=== PATIENT | female | born 1985 | race Two or more races ===

== ENCOUNTER 2024-08-27 06:15 | Emergency (ER) | payer MEDICAID, SELFPAY ==
[2024-08-27 06:17] VITALS: BMI 27.9
[2024-08-27 06:25] VITALS: BP 109/69; PULSE 77; RESP 18; TEMP 37.1; O2SAT 98
--- NOTE | 2024-08-27 06:28 | EDNOTE_ITS ---
<Statement entered by Sabine Mars MD - 08/27/24 06:44> As co-signing physician, I was present and available for consult prn. I concur with the plan and care as documented by the midlevel provider. ED Skin Abcess FB-RME/HPI General Chief complaint: Skin/Abscess/Foreign Body Stated complaint: LEFT BREAST PAIN X4 DAYS, BLEEDING Time Seen by Provider: 08/27/24 06:21 Arrival date/time: 08/27/24 06:15 39-year-old female presents emergency department complaints of left breast pain and discharge from the left breast patient is currently breast-feeding Limitations: no limitations Related Data Home Medications ?Medication ?Instructions ?Recorded ?Confirmed vitamin with calcium 1 tab PO QDAY 04/09/18 1 no.72-iron 27 mg-folic acid 1 mg tablet ( Vitamins Plus Low Iron) Previous Rx's ?Medication ?Instructions ?Recorded amoxicillin 875 mg-potassium 1 tab PO BID 10 days #20 tabs 08/27/24 clavulanate 125 mg tablet ibuprofen 600 mg tablet 600 mg PO Q6H #30 tabs 08/27 Allergies Allergy/AdvReac Type Severity Reaction Status Date / Time No Known Allergies Allergy Verified 04/18/24 06:53 Review of Systems Review of Systems Systems Reviewed: All systems reviewed, normal except as documented Constitutional Constitutional: Reports system reviewed and no additional complaints, except as documented, Denies fever(s) and Denies headache(s) Eyes Eyes: Reports system reviewed and no additional complaints, except as documented and Denies blurry vision ENT Ears, Nose, Mouth, and Throat: Reports system reviewed and no additional complaints, except as documented, Denies headache(s), Denies nasal congestion and Denies nasal discharge Cardiovascular Cardiovascular: Reports system reviewed and no additional complaints, except as documented, Denies chest pain and Denies dyspnea Respiratory Respiratory: Reports system reviewed and no additional complaints, except as documented, Denies chest congestion, Denies cough and Denies dyspnea Gastrointestinal Gastrointestinal: Reports system reviewed and no additional complaints, except as documented and Denies abdominal pain Genitourinary Genitourinary: Reports nipple discharge Integumentary/Breasts Skin/Breast: Reports system reviewed and no additional complaints, except as documented, Denies rash, Reports breast pain and Reports nipple discharge Neurologic Neurologic: Reports system reviewed and no additional complaints, except as documented, Reports as per HPI and Denies headache(s) Past Medical History Past Medical History NEUROLOGIC: Positive Migraine; Negative Neurological Disorders CARDIAC: Positive Cardiac Disorders and Hypertension (with ); Negative Congestive Heart Failure RESPIRATORY: Negative Chronic Obstructive Pulmonary Disease (COPD) or Asthma GASTROINTESTINAL: Positive Gastrointestinal Disorders and Obesity GENITOURINARY: Negative Genitourinary Disorders or Renal Disease REPRODUCTIVE: Positive Previous Pregnancies MUSCULOSKELETAL: Negative Musculoskeletal Disorders ENDOCRINE: Positive Endocrine Disorders; Negative Diabetes Mellitus Type 1, Diabetes Mellitus Type 2, Hypoglycemia, Hyperthyroidism, Hypothyroidism, Parathyroid Disease, Pituitary Disease, Systemic Lupus Erythematosus, Syndrome of Inappropriate Antidiuretic Hormone (SIADH) or Graves' Disease HEMATOLOGIC: Negative Blood Disorders or Sickle Cell Disease PSYCHO/SOCIAL: Positive Depression (no meds) and Anxiety (no meds) OTHER HISTORY: Positive Chicken Pox; Negative Autoimmune Disease Family History FAMILY HISTORY: Positive Family Gastrointestinal Problems (grandmother- stomach issues.) and Family Surgery (grandmother-appectectomy); Negative Family Psychiatric Problems, Family Respiratory Disorders, Family Cardiac Disorders, Family Cancer or Family Anesthesia Reaction Surgical History SURGICAL: Negative Section Social History SMOKING STATUS: Never smoker SECOND HAND EXPOSURE: No ED Exam General Limitations: Present no limitations General appearance: Present alert and in no apparent distress Head Head exam: Present atraumatic Eye Eye exam: Present normal appearance, PERRL and EOMI ENT ENT exam: Present normal exam, normal oropharynx and mucous membranes moist Neck Neck exam: Present normal inspection, full ROM and trachea midline Chest Chest inspection: Present normal inspection, symmetric chest wall rise and tenderness (Left breast tenderness) Respiratory Respiratory exam: Present normal lung sounds bilaterally Cardiovascular Cardiovascular exam: Present regular rate, normal rhythm and normal heart sounds Abdominal Exam Abdominal exam: Present soft and normal bowel sounds Extremities Exam Extremities exam: Present normal inspection and full ROM Back Exam Back exam: Present normal inspection and full ROM Neurological Exam Neurological exam: Present alert, oriented X3 and CN II-XII intact Psychiatric Psychiatric exam: Present normal affect and normal mood Skin Skin exam: Present warm, dry, intact and normal color; Absent erythema Course Quality Measures none Orders Category Date Time Status Lidocaine 1% 20 ml [Xylocaine 1% 20 ML] Med 08/27/24 06:26 Discontinued 2.1 ml INFL X1 ONE cefTRIAXone [Rocephin] Med 08/27/24 06:26 Discontinued 1,000 mg IM X1 ONE Vital Signs Vital signs: Vital Signs Temperature 98.8 F 08/27/24 06:25 Pulse Rate 77 08/27/24 06:25 Respiratory Rate 18 08/27/24 06:25 Blood Pressure 109/69 08/27/24 06:25 Pulse Oximetry (%) 98 08/27/24 06:25 Oxygen Delivery Method Room Air 08/27/24 06:25 O2 saturation 98% room air within normal limits Skin / Abscess / Foreign Body MDM Narrative MDM Narrative:: 39-year-old female presents emergency department complaints of left breast pain and discharge from the left breast patient is currently breast-feeding With a female mail handler examined the patient's left breast patient currently has no discharge there is no redness swelling or warmth I believe the patient does have any stage of mastitis patient given Rocephin and discharged home with a course of antibiotics I did explain to the patient she should follow-up with her HIMS CLERK for further evaluation and for emergent concerns to return immediately patient states understanding is amenable to this plan Patient data External records reviewed:: [facility] previous records Clinical information provided by:: patient Social determinants that could affect healthcare access:: none Patient has the following chronic illnesses:: She history How is presenting disease/condition affected by chronic disease/condition?: uneffected by Evaluation data The following diagnostics were reviewed and interpreted by me:: other (specify) (N/A) Lab and/or radiology exams considered but not ordered:: Consider not ordered Interpretation Summary: N/A Medications / Prescriptions Medications or Prescriptions considered but not ordered:: Given Medication administrations:: Medication Administration History Discontinued Medications Ceftriaxone Sodium (Ceftriaxone Sod Inj 1,000 Mg Vial) 1,000 mg IM X1 ONE Stop: 08/27/24 06:27 Lidocaine HCl (Lidocaine Hcl 1% 20 Ml Vial) 2.1 ml INFL X1 ONE Stop: 08/27/24 06:27 Given Consultations Consultation(s) initiated? (list below): No Diagnosis Skin/Abscess Differential Diagnosis: abscess of skin or subcutaneous tissue and cellulitis Most likely diagnosis given after review of the tests above:: Left breast pain Admission Indicated Admission indicated?: not indicated Admission Request Was there a request for admission?: No Disposition Plan Disposition Plan: Discharge Discharge Attestation Discharge Attestation: The patient and all family members were given an opportunity to ask questions and understood the discharge instructions. Discharge instructions specifically effects, indications for sooner follow up or return to the emergency department, and the expected course of current diagnosis. Patient condition: Stable Discharge Plan Plan Patient Disposition: HOME (Self Care) Disposition Comment: stable Prescriptions/Referrals Prescriptions/Med Rec: New ibuprofen 600 mg tablet 600 mg PO Q6H Qty: 30 0RF amoxicillin-pot clavulanate 875-125 mg tablet 1 tab PO BID 10 Days Qty: 20 0RF No Action Vitamin Plus Low Iron 27 mg iron- 1 mg Tablet 1 tab PO QDAY Problem List Clinical Impression: Acute mastitis of left breast Patient/Caregiver Discharge Instructions Education Materials: ED Mastitis Additional Instructions: Please follow up with your primary care doctor in the next 24-48hrs for any worsening symptoms return here immediately Print Language: Kazakh Stand Alone Forms: Sona Award Info., Patient Portal Info Letter PA/HEALTH SAFETY AND ENVIRONMENT MANAGER Supervising Physician PA/HEALTH SAFETY AND ENVIRONMENT MANAGER Supervising Physician: Dr. Mars
[2024-08-27] MEDS: cefTRIAXone SOD INJ 1,000 MG VIAL 1000 MG IM (07:18)
[2024-08-27] MEDS: LIDOCAINE HCL 1% 20 ML VIAL 2.1 ML INFL (07:18)
== END 2024-08-27 07:35 | disposition home or self-care (01) ==
LOC: SERX 06:55
PROVIDERS: Emergency Provider Emergency Medicine; PCP Emergency Medicine
DX: N61.0 Mastitis without abscess (principal)
CPT/HCPCS: 96372; 99283; J0696; J3490

== ENCOUNTER 2024-12-14 17:43 | Emergency (ER) | payer MEDICAID, SELFPAY ==
[2024-12-14 17:55] VITALS: BP 146/85; PULSE 79; RESP 16; TEMP 36.7; O2SAT 97; BMI 29.1
--- NOTE | 2024-12-14 18:32 | XR_ITS ---
Examination: PA chest single view TECHNIQUE: Upright PA chest single view Date and time: 2024 1855 hours INDICATIONS: Chest pain and weakness shortness of breath beginning 5 days ago. FINDINGS: Reduced inspiratory effort No pneumonia or pulmonary edema The osseous structures are intact IMPRESSION: No pneumonia or pulmonary edema
--- NOTE | 2024-12-14 18:32 | EKG_ITS ---
[facility] Test Date: 2024-12-14 Pat Name: JOY BUNN Department: Room: - Gender: Female Aba Therapist: : 1985 Requested By: Dewayne Reyes Order Number: [id number] Reading MD: Dewayne Reyes Measurements Intervals Lind Rate: 71 P: 35 CA: 173 QRS: 21 QRSD: 87 T: 13 QT: 391 QTc: 425 Interpretive Statements SINUS RHYTHM WITH SINUS ARRHYTHMIA Compared to ECG 04/14/2024 00:13:20 No significant changes /store/S0/[id number].pdf
--- NOTE | 2024-12-14 19:06 | PD.EDANX ---
ED Anxiety RME/HPI General Chief Complaint: Flu Like Symptoms Stated Complaint: chest pain, weakness, and shortness of breath 5day Time Seen by Provider: 12/14/24 18:28 Arrival date/time: 12/14/24 17:43 39F with history of psych (not on meds) presents to ED with 5 days of intermittent CP, SOB, and non-bloody diarrhea. Patient denies URI symptoms, N/V, diarrhea, and fevers/chills. Patient had a recent in the family and has been under a lot of stress. Patient denies SI/HI. She just wanted to be checked out because she has a baby at home and the rest of her family is leaving to another location for a while. Limitations: no limitations Related Data Home Medications ?Medication ?Instructions ?Recorded ?Confirmed vitamin with calcium 1 tab PO QDAY 04/09/18 04/18/24 no.72-iron 27 mg-folic acid 1 mg tablet ( Vitamins Plus Low Iron) Previous Rx's ?Medication ?Instructions ?Recorded ibuprofen 600 mg tablet 600 mg PO Q6H #30 tabs 08/27/24 Allergies Allergy/AdvReac Type Severity Reaction Status Date / Time No Known Allergies Allergy Verified 12/14/24 17:46 Review of Systems Review of Systems Systems Reviewed: All systems reviewed, normal except as documented Constitutional Constitutional: Reports system reviewed and no additional complaints, except as documented, Denies fever(s) and Denies headache(s) ENT Ears, Nose, Mouth, and Throat: Denies disequilibrium and Denies headache(s) Cardiovascular Cardiovascular: Reports system reviewed and no additional complaints, except as documented, Reports as per HPI, Reports chest pain and Reports dyspnea Respiratory Respiratory: Reports system reviewed and no additional complaints, except as documented, Denies cough and Reports dyspnea Gastrointestinal Gastrointestinal: Reports system reviewed and no additional complaints, except as documented, Reports as per HPI, Denies abdominal pain, Reports diarrhea, Denies nausea and Denies vomiting Neurologic Neurologic: Reports system reviewed and no additional complaints, except as documented, Denies confusion, Denies disequilibrium and Denies headache(s) Psychiatric Psychiatric: Denies confusion Past Medical History Past Medical History NEUROLOGIC: Positive Migraine; Negative Neurological Disorders CARDIAC: Positive Cardiac Disorders and Hypertension (with ); Negative Congestive Heart Failure RESPIRATORY: Negative Chronic Obstructive Pulmonary Disease (COPD) or Asthma GASTROINTESTINAL: Positive Gastrointestinal Disorders and Obesity GENITOURINARY: Negative Genitourinary Disorders or Renal Disease REPRODUCTIVE: Positive Previous Pregnancies MUSCULOSKELETAL: Negative Musculoskeletal Disorders ENDOCRINE: Positive Endocrine Disorders; Negative Diabetes Mellitus Type 1, Diabetes Mellitus Type 2, Hypoglycemia, Hyperthyroidism, Hypothyroidism, Parathyroid Disease, Pituitary Disease, Systemic Lupus Erythematosus, Syndrome of Inappropriate Antidiuretic Hormone (SIADH) or Graves' Disease HEMATOLOGIC: Negative Blood Disorders or Sickle Cell Disease PSYCHO/SOCIAL: Positive Depression (no meds) and Anxiety (no meds) OTHER HISTORY: Positive Chicken Pox; Negative Autoimmune Disease Family History FAMILY HISTORY: Positive Family Gastrointestinal Problems (grandmother- stomach issues.) and Family Surgery (grandmother-appectectomy); Negative Family Psychiatric Problems, Family Respiratory Disorders, Family Cardiac Disorders, Family Cancer or Family Anesthesia Reaction Surgical History SURGICAL: Negative Section Social History SMOKING STATUS: Never smoker SECOND HAND EXPOSURE: No ED Exam General Limitations: Present no limitations General appearance: Present alert and in no apparent distress Head Head exam: Present atraumatic Eye Eye exam: Present normal appearance, PERRL and EOMI ENT ENT exam: Present normal exam, normal oropharynx and mucous membranes moist Neck Neck exam: Present normal inspection, full ROM and trachea midline Chest Chest inspection: Present normal inspection and symmetric chest wall rise Respiratory Respiratory exam: Present normal lung sounds bilaterally Cardiovascular Cardiovascular exam: Present regular rate, normal rhythm and normal heart sounds Abdominal Exam Abdominal exam: Present soft and normal bowel sounds Extremities Exam Extremities exam: Present normal inspection and full ROM Back Exam Back exam: Present normal inspection and full ROM Neurological Exam Neurological exam: Present alert, oriented X3 and CN II-XII intact Psychiatric Psychiatric exam: Present normal affect and normal mood Skin Skin exam: Present warm, dry, intact and normal color Course Quality Measures none Orders Category Date Time Status EKG (ED ONLY) *Do not use* NOW Care 12/14/24 18:32 Completed EKG (ED Only) Stat Exams 12/14/24 18:32 Draft XR chest 1V portable Stat Exams 12/14/24 18:32 Taken B-Type Natriuretic Peptide Stat Lab 12/14/24 18:49 Received CBC Stat Lab 12/14/24 18:49 Received Comprehensive Metabolic Panel Stat Lab 12/14/24 18:49 Received Lipase Stat Lab 12/14/24 18:49 Received Troponin I Stat Lab 12/14/24 18:49 Received Vital Signs Vital signs: Vital Signs Temperature 98.1 F 12/14/24 17:55 Pulse Rate 79 12/14/24 17:55 Respiratory Rate 16 12/14/24 17:55 Blood Pressure 146/85 H 12/14/24 17:55 Pulse Oximetry (%) 97 12/14/24 17:55 Oxygen Delivery Method Room Air 12/14/24 17:55 Anxiety MDM Narrative MDM Narrative: 39F with history of psych (not on meds) presents to ED with 5 days of intermittent CP, SOB, and non-bloody diarrhea. Patient denies URI symptoms, N/V, diarrhea, and fevers/chills. Patient had a recent in the family and has been under a lot of stress. Patient denies SI/HI. She just wanted to be checked out because she has a baby at home and the rest of her family is leaving to another location for a while. Physical exam reveals clear lungs. RRR. Normal WOB. Patient is afebrile, calm, and alert. EKG is NSR. CXR normal. No leukocytosis or anemia. Trop and BNP normal. CMP unremarkable except for mild hypoK, repleted; likely from GI loss. Patient data External records reviewed:: [facility] previous records Clinical information provided by:: patient Social determinants that could affect healthcare access:: mental health Patient has the following chronic illnesses:: psych/anxiety How is presenting disease/condition affected by chronic disease/condition?: exacerbated by Evaluation data The following diagnostics were reviewed and interpreted by me:: lab results, radiology exam(s) and EKG tracing(s) Lab and/or radiology exams considered but not ordered:: ordered Interpretation Summary: above Medications / Prescriptions Medications or Prescriptions considered but not ordered:: not ordered Medication administrations:: n/a Consultations Consultation(s) initiated? (list below): No Diagnosis Differential diagnosis anxiety: hyperventilation, panic disorder, acute anxiety and other (stress reaction) Most likely diagnosis given after review of the tests above:: stress reaction Admission Indicated Admission indicated?: not indicated Admission Request Was there a request for admission?: No Disposition Plan Disposition Plan: Discharge Discharge Attestation Discharge Attestation: The patient and all family members were given an opportunity to ask questions and understood the discharge instructions. Discharge instructions specifically effects, indications for sooner follow up or return to the emergency department, and the expected course of current diagnosis. Patient condition: Stable Discharge Plan Plan Patient Disposition: HOME (Self Care) Discharge Disposition comment: Stable Prescriptions/Referrals Prescriptions/Med Rec: No Action Vitamin Plus Low Iron 27 mg iron- 1 mg Tablet 1 tab PO QDAY ibuprofen 600 mg tablet 600 mg PO Q6H Qty: 30 0RF Referrals: Min Grier MD [Primary Care Provider] - In 1 week Problem List Clinical Impression: Stress reaction Patient/Caregiver Discharge Instructions Education Materials: ED Grief Reaction Additional Instructions: Please follow-up with PCP within 24-48 hours and return immediately if symptoms worsen. Stay hydrated. Print Language: Czech Stand Alone Forms: Patient Portal Info Letter PA/SIGNAL MAINTAINER HELPER Supervising Physician PA/SIGNAL MAINTAINER HELPER Supervising Physician: Dr. Monaco
[2024-12-14 19:16] LABS: Basophils # (Auto) 0.1 Thou/mm3 (0.0-0.2); Basophils % (Auto) 1 % (0-2.5); Eosinophils # (Auto) 0.3 Thou/mm3 (0.0-0.5); Eosinophils % (Auto) 3 % (0-10); Hematocrit 37.2 % (36.0-46.0); Hemoglobin 12.9 g/dL (12.0-16.0); Immature Granulocytes % (Auto) 1 % (0-0); Immature Granulocytes Auto 0.05 Thou/mm3 (0.00-0.00); Lymphocytes # (Auto) 2.2 Thou/mm3 (1.0-4.8); Lymphocytes % (Auto) 28 % (10-50); Mean Corpuscular HGB Conc 34.7 g/dl (31.0-37.0); Mean Corpuscular Hemoglobin 28.2 pg (25.0-35.0); Mean Corpuscular Volume 81 fL (80-100); Monocytes # (Auto) 0.4 Thou/mm3 (0.0-0.8); Monocytes % (Auto) 5 % (0-12); Neutrophils # (Auto) 5.1 Thou/mm3 (1.8-7.7); Neutrophils % (Auto) 63 % (37-80); Nucleated Red Blood Cell % 0 /100 WBC (0); Platelet Count 245 Thou/mm3 (140-440); Red Blood Count 4.58 Miln/mm3 (4.00-5.20); White Blood Count 8.1 Thou/mm3 (3.6-11.0)
[2024-12-14 19:33] LABS: B-Type Natriuretic Peptide < 20 pg/mL (0-100)
[2024-12-14 19:34] LABS: Alanine Aminotransferase 48 U/L (10-49); Albumin, Serum 4.2 gm/dL (3.5-5.0); Albumin/Globulin Ratio 1.8 (1.2-2.2); Alkaline Phosphatase 165 U/L (46-116); Anion Gap 13 (7-16); Aspartate Amino Transferase 30 U/L (0-34); BUN/Creatinine Ratio 10 Ratio (12-20); Bilirubin,Total 0.2 mg/dL (0.3-1.2); Blood Urea Nitrogen 8 mg/dL (9-23); Calcium 7.8 mg/dL (8.3-10.6); Calcium (Corrected) 7.8 mg/dL (8.5-10.1); Carbon Dioxide 23.4 mMol/L (20.0-31.0); Chloride 106 mMol/L (98-107); Creatinine (Component) 0.8 mg/dL (0.6-1.3); Estimated Creatinine Clearance 72.8 mL/min (>60); Globulin 2.3 gm/dL (2.3-3.5); Glucose 196 mg/dL (74-106); Lipase 33 U/L (12-53); Osmolality,Calculated 286 (275-295); Potassium 3.3 mMol/L (3.4-5.1); Sodium 142 mMol/L (136-145); Total Protein 6.5 gm/dL (5.7-8.2); Troponin I < 0.002 ng/mL (0.0-0.045); eGFR > 60 See Note
[2024-12-14] MEDS: POTASSIUM CHLORIDE 20 mEq TABCR 40 MEQ PO (20:49)
== END 2024-12-14 20:56 | disposition home or self-care (01) ==
PROVIDERS: Physician Assistant; Emergency Provider Emergency Medicine; PCP Family Medicine
DX: F43.9 Reaction to severe stress, unspecified (principal); R07.9 Chest pain, unspecified
CPT/HCPCS: 36415; 71045; 80053; 83690; 83880; 84484; 85025; 93005; 99283; A9270